=== PATIENT | male | born 1965 ===

== ENCOUNTER 2022-09-07 05:13 | Day surgery (SDC) | payer OTHER ==
[~2022-09-07] VITALS: Ht 172.7 cm; Wt 122.5 kg
[~2022-09-07 05:13] MED LIST: BUPROPION XL300 MG PO; COZAAR100 MG PO; METFORMIN HCL500 M3 PO; NORVASC5 MG PO; SEROQUEL XR150 MG PO; TRAM1TAB98 PO
[2022-09-07] MEDS ORDERED: TRAMADOL HCL50 MG PO (08:20)
== END 2022-09-07 11:13 | disposition home or self-care (01) ==
LOC: CIR.AMB 05:13
PROVIDERS: ATTEND Surgery
DX: A63.0 Anogenital (venereal) warts (principal); D12.8 Benign neoplasm of rectum; K62.0 Anal polyp; Z20.822 Contact with and (suspected) exposure to COVID-19; I10 Essential (primary) hypertension